=== PATIENT | female | born 1945 | race Two or more races ===

== ENCOUNTER 2017-09-26 10:10 | Outpatient (CLI) | payer OTHER ==
[~2017-09-26] VITALS: Ht 157.5 cm; Wt 63.5 kg
[2017-09-26] MEDS ORDERED: FLONASE16 GM NASAL (11:50)
== END 2017-09-26 10:30 | disposition home or self-care (01) ==
LOC: OFIC 805 10:10
DX: J34.2 Deviated nasal septum (principal); J31.0 Chronic rhinitis; G50.1 Atypical facial pain; H69.82 Other specified disorders of Eustachian tube, left ear

== ENCOUNTER 2017-10-10 11:16 | Outpatient (CLI) | payer OTHER ==
[~2017-10-10] VITALS: Ht 152.4 cm; Wt 63.5 kg
[~2017-10-10 11:16] MED LIST: FLONASE16 GM NASAL
[2017-10-10] MEDS ORDERED: FLONASE16 GM NASAL (14:12)
== END 2017-10-10 11:30 | disposition home or self-care (01) ==
LOC: OFIC 805 11:16
DX: J34.2 Deviated nasal septum (principal)

== ENCOUNTER 2021-01-20 09:45 | Inpatient (IN) | payer OTHER ==
[~2021-01-20] VITALS: Ht 157.5 cm; Wt 62.6 kg
[2021-01-20] MEDS ORDERED: TENORMIN100 M1 PO (11:04)
[2021-01-20] MEDS ORDERED: ATORVASTATIN CA10 MG PO (11:04)
[2021-01-20] MEDS ORDERED: NORVASC5 MG PO (11:04)
[2021-01-20] MEDS ORDERED: BENICAR40 MG PO (11:04)
[2021-01-20] MEDS ORDERED: METFORMIN HCL500 M3 PO (11:04)
[2021-01-20] MEDS ORDERED: XANAX0.25 MG PO (11:05)
[2021-01-20] MEDS ORDERED: D3 + K2 DOTS 11 EACH PO (11:06)
[2021-01-20] MEDS ORDERED: B12 ACTIVE1000 MCG PO (11:06)
[2021-01-20] MEDS ORDERED: XELJANZ XR11 MG PO (11:06)
[2021-01-27] MEDS ORDERED: DIAZEPAM5 MG PO (15:28)
[2021-01-27] MEDS ORDERED: PERCOCET 5-3251 EACH PO (15:28)
[2021-01-27] MEDS ORDERED: AMOX-CLAV 875-1 EACH PO (15:28)
[2021-01-27] MEDS ORDERED: COLACE100 MG PO (15:28)
== END 2021-01-29 17:55 | DRG 473 ==
LOC: O/R 01-27 07:58 → SURH 01-27 07:58
PROVIDERS: ADMIT Orthopaedic Surgery Orthopaedic Surgery of the Spine; ATTEND Orthopaedic Surgery Orthopaedic Surgery of the Spine
PROC: 07DS0ZZ Extraction of Vertebral Bone Marrow, Open Approach (ICD-10-PCS; 2021-01-27)
PROC: 0RG20J0 Fusion of 2 or more Cervical Vertebral Joints with Synthetic Substitute, Anterior Approach, Anterior Column, Open Approach (ICD-10-PCS; principal; 2021-01-27 17:00)
DX: M50.023 Cervical disc disorder at C6-C7 level with myelopathy (principal)